=== PATIENT | male | born 1950 | race Caucasian/White ===

== ENCOUNTER 2016-04-29 13:01 | Day surgery (SDC) | payer OTHER ==
[~2016-04-29] VITALS: Ht 165.1 cm; Wt 73.4 kg
[2016-04-29 13:45] VITALS: Ht 165.1 cm; Wt 73.4 kg
[2016-04-29] MEDS ORDERED: losartan-hctz (13:50)
[2016-04-29 14:31] VITALS: BP 141/81; PULSE 84; RESP 15
[2016-04-29] MEDS ORDERED: FENTAnyl 50 MCG/ML VIAL ONE (15:20)
[2016-04-29] MEDS ORDERED: MIDAZOLAM 1 MG/ML 2 ML INJ ONE ×2 (15:20)
[2016-04-29 15:33] VITALS: BP 110/65; PULSE 76; RESP 18
--- NOTE | 2016-05-01 07:11 | GILP ---
DATE OF PROCEDURE: 04/29/2016 PREOPERATIVE DIAGNOSIS: Rectal bleeding. POSTOPERATIVE DIAGNOSIS: Moderate to severe diverticulosis with narrowing of the sigmoid colon and internal hemorrhoids grade 2. PROCEDURE DONE: Colonoscopy up to cecum. DESCRIPTION OF PROCEDURE: The patient was put into the left lateral decubitus, after obtaining info rmed consent, monitored oximetry, EKG, blood pressure. Very carefully, sedated with 3 mg IV Versed and 100 mcg of fentanyl. Very carefully advanced the colonoscope all the way to cecum, with some difficulty through the sigmo id colon due to narrowing, diverticular stricture, and fixed sigmoid colon. Moderate to severe dive rticulosis in the sigmoid colon and descending colon noted. The narrowing was mostly in the sigmoid colon. The scope was slowly advanced all the way to cecum. Examination of the cecum and ascending colon normal. Descending colon and sigmoid colon as I described, severe diverticulosis, especially in the sigmoid colon, with narrowing. Rectosigmoid also somewhat fixed. Rectum itself was unremar kable, except for grade II internal hemorrhoids. Upon removal of scope, patient had no complication . Dear Dr. Micky Roth, if this patient continues to have obstructive symptoms, consider left colecto my. Meanwhile, I advised him to take MiraLAX 17 g with 8 ounces of water and high fiber diet, and a dvised him to follow with you. If he continues to bleed, or obstruct, or develop any diverticulitis , he needs to have a left colectomy. Dictated By: ESTEBAN LUBIN Conf#: [id number] DID#: [id number] CC: Dr. Micky Roth;*EndCC*
== END 2016-04-29 15:53 | disposition home or self-care (01) ==
LOC: GIL 13:01
PROVIDERS: ATTEND Internal Medicine
DX: K57.90 Diverticulosis of intestine, part unspecified, without perforation or abscess without bleeding (principal); K64.4 Residual hemorrhoidal skin tags; I10 Essential (primary) hypertension
CPT/HCPCS: 45378; J2250; J3010